=== PATIENT | male | born 1980 | race Caucasian/White ===

== ENCOUNTER 2019-04-25 09:06 | Emergency (ER) | payer SELFPAY ==
[2019-04-25 09:18] VITALS: TEMP 97.2
--- NOTE | 2019-04-25 09:26 | ED.PDOC ---
History of Present Illness - General Chief Complaint: General Stated Complaint: Bodyaches, cough, headache Time Seen by Provider: 04/25/19 09:15 Additional Information: Pt w cc of flu-like sx for 2 days. Pt w body aches, subj LGF, fatigue, nasal congestion. Neg CP, SOB, AP. Pt is o/w asx. - History of Present Illness Allergies/Adverse Reactions: Allergies NO KNOWN ALLERGY Allergy (Verified 04/25/19 09:14) Home Medications: Ambulatory Orders Acetaminophen [Tylenol] 650 mg PO Q6H #50 tab 04/25/19 Oseltamivir Capsule [Tamiflu] 75 mg PO DAILY 5 Days #5 capsule 04/25/19 Review of Systems - Review of Systems Constitutional: States: fever, malaise. Denies: chills EENTM: States: nose congestion. Denies: ear pain, nose pain, throat pain Respiratory: States: cough - occ, dry Cardiology: Denies: chest pain, palpitations Genitourinary: States: no symptoms reported Musculoskeletal: States: muscle pain Skin: Denies: rash Neurological: States: no symptoms reported All other Systems: Reviewed and Negative Past Medical History (General) - Patient Medical History Hx Stroke: No Hx Congestive Heart Failure: No Hx Diabetes: No Hx Gastroesophageal Reflux: No - IBS - Vaccination History Hx Influenza Vaccination: Yes - 2019 - Social History Hx Tobacco Use: Yes Hx Alcohol Use: No Family Medical History - Family History Father Family History: No Known Living Status: Still Living Hx Family Hypertension: Yes Physical Exam - Physical Exam General Appearance: Alert, Comfortable, No apparent distress, Well Developed, Well Nourished Ears, Nose, Throat: normal ENT inspection, normal pharynx Neck: non-tender, full range of motion, supple, normal inspection Respiratory: chest non-tender, lungs clear, normal breath sounds, no respiratory distress, no accessory muscle use Cardiovascular/Chest: normal peripheral pulses, regular rate, rhythm, no edema, no gallop, no JVD, no murmur Gastrointestinal/Abdominal: normal bowel sounds, non tender, soft, no organomegaly Back Exam: normal inspection, no CVA tenderness Extremity: normal range of motion, non-tender, normal inspection 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 Will dc w tamiflu and tylenol and pt to rest and f/u w his PCP. RTED precautions d/w pt who voices understand. Pt VSS and NAD, he is safe for dc w outpt fu. Departure - Departure Clinical Impression: Influenza Time of Disposition: 09:54 Disposition: Discharge to Home or Self Care Condition: Good Departure Forms: ED Discharge - Pt. Copy, Patient Portal Self Enrollment Referrals: ELISE GILL MD [Active Staff] - 1-5 Days Prescriptions: Acetaminophen [Tylenol] 650 mg PO Q6H #50 tab Oseltamivir Capsule [Tamiflu] 75 mg PO DAILY 5 Days #5 capsule Home Medications: Ambulatory Orders Acetaminophen [Tylenol] 650 mg PO Q6H #50 tab 04/25/19 Oseltamivir Capsule [Tamiflu] 75 mg PO DAILY 5 Days #5 capsule 04/25/19
[2019-04-25 10:18] VITALS: BP 132/79; O2SAT 95
== END 2019-04-25 10:05 | disposition home or self-care (01) ==
LOC: ER 09:06
DX: J10.1 Influenza due to other identified influenza virus with other respiratory manifestations (principal); Z87.891 Personal history of nicotine dependence

== ENCOUNTER 2020-02-04 15:39 | Emergency (ER) | payer SELFPAY ==
--- NOTE | 2020-02-04 15:40 | ED.PDOC ---
History of Present Illness - General Time Seen by Provider: 02/04/20 15:40 Source: patient - History of Present Illness Initial Comments: 40-year-old male who presents with chief complaint of right ear pain. Onset 1 week ago with gradual worsening. Much worse since this morning. Reports is constant throbbing 8/10 severity pain inside the right ear, radiates to the outer ear and also down the right jaw, worse with palpation of the ear. He tried ibuprofen 400 mg this morning with little relief. He additionally reports large amount of watery discharge from the ear. He has been using Q-tips frequently with significant amount of wax and discharge as well. Additionally reports slight decreased hearing in the right ear. Denies any fevers, chills, sore throat, congestion, cough, chest pain, abdominal pain, other systemic symptoms. Allergies/Adverse Reactions: Allergies Penicillins Allergy (Verified 02/04/20 15:56) Home Medications: Ambulatory Orders Acetaminophen [Tylenol] 650 mg PO Q6H #50 tab 04/25/19 Oseltamivir Capsule [Tamiflu] 75 mg PO DAILY 5 Days #5 capsule 04/25/19 Acetaminophen W/ Codeine [Tylenol W/ CODEINE #3] 1 tab PO Q6H PRN 5 Days #10 tab 02/04/20 Azithromycin Tab [Zithromax Tab] 250 mg PO DAILY 4 Days #4 tab 02/04/20 Ciprofloxacin/Dexameth Otic [CiproDex Otic] 4 drop OTIC BID 7 Days #7.5 ml 02/04/20 Review of Systems - Review of Systems Review of Systems: 02/04/20 15:56 as per HPI All other Systems: Reviewed and Negative Past Medical History (General) - Patient Medical History Hx Stroke: No Hx Congestive Heart Failure: No Hx Diabetes: No Hx Gastroesophageal Reflux: No - IBS - Vaccination History Hx Influenza Vaccination: Yes - 2019 - Social History Hx Tobacco Use: Yes Hx Alcohol Use: No Family Medical History - Family History Father Family History: No Known Living Status: Still Living Hx Family Hypertension: Yes Physical Exam - Physical Exam General Appearance: Alert, Comfortable, No apparent distress Eye Exam: bilateral normal Ears, Nose, Throat: normal pharynx, abnormal TM (R) - copious cerumen impaction against R TM with moderate erythema of R ear canal and partially visualized R TM, mild pain with manipulation of R outer ear, L ear exam normal, hearing decreased - moderate on Right side Neck: supple, normal inspection Respiratory: lungs clear, normal breath sounds Cardiovascular/Chest: regular rate, rhythm, no murmur Gastrointestinal/Abdominal: non tender, soft Extremity: normal inspection 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 Given cerumen impaction with partially visualized erythematous R TM, concern also for otitis media. Will treat in the ED with Debrox to R ear with gentle warm water flushing. Then will apply Ciprodex 4 drops to R ear in ED & give Azithromycin 500 mg PO. Tylenol #3 x1 fo r pain control. -will Rx azithromycin 250 mg daily x4 more days and Ciprodex BID x7 days on discharge. Advised no more instruments/q tips in R ear. Avoid any moisture getting in R ear. Continue twice daily Debrox at home as needed for cerumen impaction. F/u with PCP. Bhargav Jackson MD Billing #[id number] Departure - Departure Clinical Impression: Impacted cerumen of right ear Otitis externa Qualifiers: Otitis externa type: swimmer's ear Chronicity: acute Laterality: right Qualified Code(s): H60.331 - Swimmer's ear, right ear Otitis media Qualifiers: Otitis media type: suppurative Chronicity: acute Laterality: right Recurrence: non-recurrent Spontaneous tympanic membrane rupture: without spontaneous rupture Qualified Code(s): H66.001 - Acute suppurative otitis media without spontaneous rupture of ear drum, right ear Time of Disposition: 16:03 Disposition: Discharge to Home or Self Care Condition: Good Instructions: Outer Ear Infection (DC), Serous Otitis Media (DC), Ear Wax Impaction (DC) Diet: resume usual diet Activity: increase activity as tolerated Referrals: Dante Yee MD [Primary Care Provider] - 1-2 Weeks Prescriptions: Ciprofloxacin/Dexameth Otic [CiproDex Otic] 4 drop OTIC BID 7 Days #7.5 ml Acetaminophen W/ Codeine [Tylenol W/ CODEINE #3] 1 tab PO Q6H PRN 5 Days #10 tab PRN Reason: Pain Azithromycin Tab [Zithromax Tab] 250 mg PO DAILY 4 Days #4 tab Home Medications: Ambulatory Orders Acetaminophen [Tylenol] 650 mg PO Q6H #50 tab 04/25/19 Oseltamivir Capsule [Tamiflu] 75 mg PO DAILY 5 Days #5 capsule 04/25/19 Acetaminophen W/ Codeine [Tylenol W/ CODEINE #3] 1 tab PO Q6H PRN 5 Days #10 tab 02/04/20 Azithromycin Tab [Zithromax Tab] 250 mg PO DAILY 4 Days #4 tab 02/04/20 Ciprofloxacin/Dexameth Otic [CiproDex Otic] 4 drop OTIC BID 7 Days #7.5 ml 02/04/20 Additional Instructions: Take the antibiotics as directed and finish the full course even if well. As discussed prevent any further moisture from entering the ear if possible. Wear an ear plug in the right ear while showering or a cottonball with one side dipped in Vaseline shown into the right ear. Avoid any further instrumentation inside the ear canal with Q-tips which can worsen irritation and infection of the outer ear. Continue to take [id number] medications as needed for pain such as ibuprofen 800 mg every 8 hours as needed and Tylenol 650 mg every 6 h ours as needed. You may take the Tylenol 3 as directed for breakthrough pain. Do not drive or operate heavy machinery when taking this medication as it may make you drowsy. You may also continue to use [id number] Debrox in the right ear twice daily followed by gentle flushing with warm water with a bulb syringe to help with earwax impaction as needed. Follow-up with your primary care physician is recommended for repeat evaluation in the next 1 to 2 weeks or sooner as needed.
[2020-02-04] MEDS ORDERED: AZITHROMYCIN 250 MG TAB PO ONE (15:53)
[2020-02-04] MEDS ORDERED: CIPROFLOXACIN/DEXAMETH OTIC 7.5ML BOTTLE OTIC ONE (15:53)
[2020-02-04] MEDS ORDERED: CARBAMIDE PEROXIDE OTIC 15 ML BTTL RIGHT_EAR ONE (15:53)
[2020-02-04] MEDS ORDERED: ACETAMINOPHEN W/COD #3 TAB 1 EA TAB PO ONE (15:56)
[2020-02-04 15:58] VITALS: TEMP 97.3; O2SAT 97
[2020-02-04] MEDS ORDERED: CIPROFLOXACIN/DEXAMETH OTIC 7.5ML BOTTLE ONE (16:05)
[2020-02-04 16:51] VITALS: BP 133/90
== END 2020-02-04 16:50 | disposition home or self-care (01) ==
LOC: ER 15:39
DX: H60.331 Swimmer's ear, right ear (principal); H66.001 Acute suppurative otitis media without spontaneous rupture of ear drum, right ear; H61.21 Impacted cerumen, right ear; Z88.0 Allergy status to penicillin; Z87.891 Personal history of nicotine dependence